=== PATIENT | male | born 1970 ===

== ENCOUNTER 2016-09-06 03:00 | Emergency (ER) | payer SELFPAY ==
--- NOTE | 2016-09-06 03:26 | C.PDOC ---
History Of Present Illness Patient is a 46 year old male who presents to the ER with a bleed to his left lower leg. Patient states the bleeding began after picking at an old superficial varicose vein. Denies fever, chills or recent injury. Chief Complaint (Nursing): Lower Extremity Problem/Injury History Per: Patient History/Exam Limitations: no limitations Onset/Duration Of Symptoms: Hrs Current Symptoms Are (Timing): Still Present Recent travel outside of the [place]: No Past Medical History Reviewed: Historical Data, Nursing Documentation, Vital Signs Vital Signs: Last Vital Signs Temp 98.2 F 09/06/16 03:15 Pulse 98 H 09/06/16 03:15 Resp 18 09/06/16 03:15 BP 145/87 09/06/16 03:15 Pulse Ox 94 L 09/06/16 03:40 - Medical History PMH: No Chronic Diseases Surgical History: No Surg Hx Family History: States: Unknown Family Hx - Social History Hx Alcohol Use: No Hx Substance Use: No - Immunization History Hx Tetanus Toxoid Vaccination: No Hx Influenza Vaccination: No Hx Pneumococcal Vaccination: No Review Of Systems Constitutional: Negative for: Fever, Chills Musculoskeletal: Positive for: Leg Pain (Left lower, bleeding wound) Physical Exam - Physical Exam Appears: Well, Non-toxic Skin: Normal Color, Warm, Dry Head: Atraumatic, Normacephalic Eye(s): bilateral: Normal Inspection, EOMI Oral Mucosa: Moist Chest: Symmetrical, No Tenderness Cardiovascular: Rhythm Regular, No Murmur Respiratory: Normal Breath Sounds, No Rales, No Rhonchi, No Wheezing Gastrointestinal/Abdominal: Soft, No Tenderness Extremity: Normal ROM (x4), Other (left lower leg, no active bleeding) Neurological/Psych: Oriented x3, Normal Speech, Normal Cognition ED Course And Treatment O2 Sat by Pulse Oximetry: 94 (Room air) Pulse Ox Interpretation: Normal Progress Note: Pressure dressing applied. Disposition Counseled Patient/Family Regarding: Diagnosis - Disposition Referrals: [facility] [Outside] Disposition: HOME/ ROUTINE Disposition Time: 03:25 Condition: STABLE Additional Instructions: leg elevation Instructions: Varicose Veins (ED) - POA Present On Arrival: None - Clinical Impression Clinical Impression: Varicose vein of leg - Scribe Statement The provider has reviewed the documentation as recorded by the Scribe Gopal Montoya All medical record entries made by the Scribe were at my direction and personally dictated by me. I have reviewed the chart and agree that the record accurately reflects my personal performance of the history, physical exam, medical decision making, and the department course for this patient. I have also personally directed, reviewed, and agree with the discharge instructions and disposition.
[2016-09-06] MEDS ORDERED: Bacitracin 500 Units/gm Oint Foilpak UD ONE (03:32)
[2016-09-06] MEDS ORDERED: Bacitracin Ointment 30 GM TUBE TOP ONE (04:05)
[2016-09-06 06:28] VITALS: BP 106/71; PULSE 77; RESP 20; TEMP 97.7; O2SAT 95
== END 2016-09-06 06:28 | disposition home or self-care (01) ==
LOC: C.ER 03:00
DX: I83.92 Asymptomatic varicose veins of left lower extremity (principal)